=== PATIENT | female | born 1980 | race Caucasian/White ===

== ENCOUNTER 2016-12-10 02:30 | Emergency (ER) | payer SELFPAY ==
[~2016-12-10] VITALS: Ht 167.6 cm; Wt 102.1 kg
[2016-12-10 02:34] VITALS: Ht 167.6 cm; Wt 102.1 kg
[2016-12-10] MEDS ORDERED: KETOROLAC 30 MG INJ IM STA (03:07)
--- NOTE | 2016-12-10 05:08 | RADRPT ---
PROCEDURE: LEFT HIP - 2 VIEWS CLINICAL INDICATION: 36-year-old female with left hip pain. TECHNIQUE: AP and frog lateral views of the left hip were performed. The images reviewed on a PACS workstation. COMPARISON: None. FINDINGS: There is normal mineralization and alignment. No fracture or osseous lesion is identified. There are normal joints without evidence of arthritis or effusion. The soft tissues are unremarkable. IMPRESSION: Unremarkable left hip radiographs. .Tello Bond MD, MD Date Time Electronically viewed and signed by .Tello Bond MD, on 12/10/2016 05:08 .Branden/
--- NOTE | 2016-12-10 05:10 | RADRPT ---
PROCEDURE: LEFT FEMUR - 4 VIEWS CLINICAL INDICATION: 36-year-old female with left lower extremity pain. TECHNIQUE: AP and lateral views of the left femur were performed. The images reviewed on a PACS wo rkstation. COMPARISON: Left hip radiographs obtained concurrently. FINDINGS: There is normal mineralization and alignment. No fracture or osseous lesion is identified. There are normal joints without evidence of arthritis or effusion. No radiopaque foreign body is seen. IMPRESSION: Unremarkable left femur radiographs. .Tello Bond MD, Date Time Electronically viewed and signed by .Tello Bond MD, on 12/10/2016 05:09 .Branden/
[2016-12-10] MEDS ORDERED: NAPR-260 PO (05:13)
[2016-12-10 05:26] VITALS: BP 142/89; PULSE 75; RESP 20
--- NOTE | 2016-12-15 23:38 | ERD ---
ER Documentation Chief Complaint Date/Time DATE: 12/15/16 TIME: 23:35 Chief Complaint Lt hip pain radiating to Lt leg s/p slip down stairs on 12/08/16. Took [place] HPI Patient is a 36-year-old female presenting to the emergency department with complaints of left hip pain radiating down her left leg after a slip down her stairs yesterday. She took [place] for the pain which provided mild relief. She states she accidentally missed a step causing her to fall. She had no head injury or loss of consciousness at the time. Symptoms are constant and worse with movement. She denies loss of bowel or bladder function, saddle anesthesia , fevers, chills, or other injuries or symptoms at this time. ROS All systems reviewed and are negative except as per history of present illness. Medications Home Meds Active Scripts Naproxen* (Naprosyn*) 500 Mg Tablet, 500 MG PO BID Y for PAIN AND/OR INFLAMMATION, #30 TAB Prov:ISAMAR HOWELL PA-C 12/10/16 Allergies Allergies: Coded Allergies: No Known Allergy (Unverified , 12/10/16) PMhx/Soc Medical and Surgical Hx: pt denies Medical Hx, pt denies Surgical Hx History of Surgery: No Anesthesia Reaction: No Hx Neurological Disorder: No Hx Respiratory Disorders: No Hx Cardiac Disorders: No Hx Psychiatric Problems: No Hx Miscellaneous Medical Probl: Yes (NO MED HX) Hx Alcohol Use: Yes Hx Substance Use: No Hx Tobacco Use: No Smoking Status: Never smoker Physical Exam Physical Exam Const: Morbidly obese body habitus. Nontoxic, well-appearing. Head: Atraumatic Eyes: Normal Conjunctiva ENT: Normal External Ears, Nose and Mouth. Neck: Full range of motion..~ No meningismus. Skin: No petechiae or rashes Back: No midline or flank tenderness Ext: The patient does have some tenderness palpation of the left lateral hip. Active range of motion is intact. Neur: Awake and alert Psych: Normal Mood and Affect Results 24 hrs Current Medications Medications (Trade) Dose Ordered Sig/Linda Route PRN Reason Start Time Stop Time Status Last Admin Dose Admin Ketorolac Tromethamine (Toradol) 30 mg ONCE STAT IM 12/10/16 03:07 12/10/16 03:09 DC 12/10/16 03:57 Procedures/MDM 36-year-old female presenting to the emergency department with complaints of left hip pain after injury. X-ray showed no signs of fracture. The patient was stable for discharge with a prescription for naproxen for her pain. She is advised to return immediately for any new or worsening symptoms. Follow-up within 1-2 days with the primary care physician was advised. PROCEDURE: LEFT FEMUR - 4 VIEWS CLINICAL INDICATION: 36-year-old female with left lower extremity pain. TECHNIQUE: AP and lateral views of the left femur were performed. The images reviewed on a PACS workstation. COMPARISON: Left hip radiographs obtained concurrently. FINDINGS: There is normal mineralization and alignment. No fracture or osseous lesion is identified. There are normal joints without evidence of arthritis or effusion. No radiopaque foreign body is seen. IMPRESSION: Unremarkable left femur radiographs. .Tello Bond MD, MD Date Time Electronically viewed and signed by .Tello Bond MD, MD on 12/10/2016 05:09 PROCEDURE: LEFT HIP - 2 VIEWS CLINICAL INDICATION: 36-year-old female with left hip pain. TECHNIQUE: AP and frog lateral views of the left hip were performed. The images reviewed on a PACS workstation. COMPARISON: None. FINDINGS: There is normal mineralization and alignment. No fracture or osseous lesion is identified. There are normal joints without evidence of arthritis or effusion. The soft tissues are unremarkable. IMPRESSION: Unremarkable left hip radiographs. .Tello Bond MD, MD Date Time Electronically viewed and signed by .Tello Bond MD, MD on 12/10/2016 05:08 Departure Diagnosis: Primary Impression: Left hip pain Condition: Fair Patient Instructions: Hip Contusion Referrals: [facility] YOU HAVE RECEIVED A MEDICAL SCREENING EXAM AND THE RESULTS INDICATE THAT YOU DO NOT HAVE A CONDITION THAT REQUIRES URGENT TREATMENT IN THE EMERGENCY DEPARTMENT. FURTHER EVALUATION AND TREATMENT OF YOUR CONDITION CAN WAIT UNTIL YOU ARE SEEN IN YOUR DOCTORS OFFICE WITHIN THE NEXT 1-2 DAYS. IT IS YOUR RESPONSIBILITY TO MAKE AN APPOINTMENT FOR SHARMIN-UP CARE. IF YOU HAVE A PRIMARY DOCTOR --you should call your primary doctor and schedule an appointment IF YOU DO NOT HAVE A PRIMARY DOCTOR YOU CAN CALL OUR PHYSICIAN REFERRAL HOTLINE AT IF YOU CAN NOT AFFORD TO SEE A PHYSICIAN YOU CAN CHOSE FROM THE FOLLOWING [facility] [id number] [facility] [address] [facility] [address] [facility] [address] [facility] [address] [facility]. [facility]. [address] Additional Instructions: Follow up with your PCP within the next 1-3 days for a repeat evaluation. If you require a referral to a specialist, your Primary Care Provider may be able to provide this for you. In most patient cases, a referral is not required. If you have further questions regarding this matter, please ask your Primary Care Provider. Return the the emergency department immediately if symptoms worsen or change. If you have any questions regarding medications, ask your pharmacist or us before you leave. If any adverse reactions, occur while taking your medications, discontinue the treatment and return to the emergency department immediately. If any new or worsening symptoms, uncontrolled fevers, or other unexplained symptoms occur, return to the emergency department immediately. Take your medications as directed, and complete the entire course of treatment. ISAMAR HOWELL PA-C Dec 15, 2016 23:38
== END 2016-12-10 05:14 | disposition home or self-care (01) ==
LOC: FTE 02:30
DX: M25.552 Pain in left hip (principal)
CPT/HCPCS: 73510; 73550; 96372; 99284; J1885

== ENCOUNTER 2018-01-16 12:34 | Emergency (ER) | END 2018-01-16 15:27 | disposition home or self-care (01) ==